=== PATIENT | female | born 1980 | race Caucasian/White ===

== ENCOUNTER 2018-07-15 05:25 | Emergency (ER) | payer BC ==
[~2018-07-15] VITALS: Ht 170.2 cm; Wt 76.0 kg
[~2018-07-15 05:25] MED LIST: ACET-1256 PO; IMD2X PO; PROBIOTIC PO; VANC5CAP PO
[2018-07-15 05:28] VITALS: Ht 170.2 cm; Wt 76.0 kg
--- NOTE | 2018-07-15 05:39 | EMERGENCY ROOM VISIT NOTE ---
History Report prepared by Chacorta: Tae Germain Under the Supervision of: Dr. Bhakti Krishna D.O. First contact with patient: 05:27 Chief Complaint: ANXIETY Stated Complaint: ANXIETY ATTACK History of Present Illness The patient is a 38 year old female who presents to the Emergency Room with complaints of an episode of anxiety occurring this morning. The patient states that she woke up at 0300 and felt like she was burning up. She notes that she felt fine before she went to bed. She reports that her pulse was 111. The patient states that she then took her temperature which was 101. She also complains of occasional leg stiffness beginning a week ago. She notes that she was recently increased from 50mg of Zoloft to 100mg a week ago. She reports that she could not take 100mg because of the side effects, and she states that she was then decreased to 75mg. She notes that she has been having leg stiffness since she was increased to 100mg. She reports that she is worried that she is getting serotonin syndrome. The patient states that she typically feels fine when she takes Ativan and Zoloft together; however, she notes that she has bad side effects once the Ativan wears off. She reports that she last took her Zoloft at 2030 and then went to bed. The patient states that she took an 0.5mg Ativan before EMS arrived and she notes that she was able to calm down on the way to the emergency department. She denies any sore throat, cough, and burning urination. She reports that she has a history of anxiety but does not have a history of reflux or any other problems. The patient states that she had her last period a week ago and she notes that there is no chance that she is . Per EMS, the patient was tachycardic in the 140s en route to the emergency department. Source of History: patient Onset: this morning Position: head Quality: other (anxiety) Timing: other (an episode) Associated Symptoms: + fevers, No sorethroat, No cough Note: The patient also complains of a pulse of 111 and occasional leg stiffness. She denies any burning urination. Review of Systems See HPI for pertinent positives & negatives. A total of 10 systems reviewed and were otherwise negative. Past Medical & Surgical Medical Problems: (1) Anxiety Family History No pertinent family history stated. Social History Alcohol Use: none Marital Status: Housing Status: lives with family Occupation Status: employed Current/Historical Medications Scheduled Sertraline Hcl (Zoloft), 50 MG PO DAILY Scheduled PRN Lorazepam (Ativan), 0.5 MG PO DAILY PRN for Anxiety Allergies Coded Allergies: Penicillins (Verified Allergy, Unknown, UNKNOWN, 07/15/18) Physical Exam Vital Signs Date Time Temp Pulse Resp B/P (MAP) Pulse Ox O2 Delivery O2 Flow Rate FiO2 07/15/18 06:18 37.0 96 18 115/75 100 Room Air 07/15/18 05:40 90 07/15/18 05:28 37.0 94 18 132/85 Room Air 97 Physical Exam General: Appears somewhat anxious on exam. HEENT: Head - normocephalic and atraumatic Pupils are equal, round, and reactive to light. Extraocular eye muscles are intact, and sclera are anicteric. Nose - moist nasal mucosa without discharge. Mouth - moist buccal mucosa. Oropharynx is nonerythematous and there is no tonsillar exudate or edema noted. Neck: Supple; no JVD, nuchal rigidity, cervical lymphadenopathy. Heart: Regular rate and rhythm. There is a normal S1 and S2 with no murmurs, clicks, or gallops appreciated. Lungs: Clear to auscultation bilaterally with no wheezes, rales, or rhonchi. Abdomen: Soft, completely nontender, nondistended, with good bowel sounds. There are no palpable pulsatile masses or hepatosplenomegaly. There is no guarding, rigidity, or rebound noted. Extremities: No evidence of cyanosis, clubbing, or edema. There are easily palpable peripheral pulses. Skin: warm and dry with good turgor and no rashes. Medical Decision & Procedures Laboratory Results 07/15/18 04:58 Red Blood Count 4.88, Mean Corpuscular Volume 83.8, Mean Corpuscular Hemoglobin 30.9, Mean Corpuscular Hemoglobin Concent 36.9, Mean Platelet Volume 9.6, Neutrophils (%) (Auto) 73.7, Lymphocytes (%) (Auto) 11.1, Monocytes (%) (Auto) 8.2, Eosinophils (%) (Auto) 6.0, Basophils (%) (Auto) 0.4, Neutrophils # (Auto) 3.66, Lymphocytes # (Auto) 0.55, Monocytes # (Auto) 0.41, Eosinophils # (Auto) 0.30, Basophils # (Auto) 0.02 07/15/18 04:58 Test 07/15/18 04:58 White Blood Count 4.97 K/uL (4.8-10.8) Red Blood Count 4.88 M/uL (4.2-5.4) Hemoglobin 15.1 g/dL (12.0-16.0) Hematocrit 40.9 % (37-47) Mean Corpuscular Volume 83.8 fL (80-100) Mean Corpuscular Hemoglobin 30.9 pg (25-34) Mean Corpuscular Hemoglobin Concent 36.9 g/dl (32-36) Platelet Count 206 K/uL (130-400) Mean Platelet Volume 9.6 fL (7.4-10.4) Neutrophils (%) (Auto) 73.7 % Lymphocytes (%) (Auto) 11.1 % Monocytes (%) (Auto) 8.2 % Eosinophils (%) (Auto) 6.0 % Basophils (%) (Auto) 0.4 % Neutrophils # (Auto) 3.66 K/uL (1.4-6.5) Lymphocytes # (Auto) 0.55 K/uL (1.2-3.4) Monocytes # (Auto) 0.41 K/uL (0.11-0.59) Eosinophils # (Auto) 0.30 K/uL (0-0.5) Basophils # (Auto) 0.02 K/uL (0-0.2) RDW Standard Deviation 38.4 fL (36.4-46.3) RDW Coefficient of Variation 12.6 % (11.5-14.5) Immature Granulocyte % (Auto) 0.6 % Immature Granulocyte # (Auto) 0.03 K/uL (0.00-0.02) Anion Gap 11.0 mmol/L (3-11) Est Creatinine Clear Calc Drug Dose 90.0 ml/min Estimated GFR () 93.4 Estimated GFR (Non- 80.6 BUN/Creatinine Ratio 7.4 (10-20) Calcium Level 9.2 mg/dl (8.5-10.1) Total Creatine Kinase 96 U/L (26-192) Laboratory results per my review. ECG Per My Interpretation Indication: tachycardia Rate (beats per minute): 88 Rhythm: normal sinus Findings: no ectopy, other (No ischemia, no ST segment changes) ED Course 0528: Past medical records reviewed. The patient was evaluated in room B2. A complete history and physical exam was performed. A 12-lead EKG was obtained as described above. Laboratory studies were drawn as above. 0614: I reevaluated and updated the patient. She is feeling better. She states that she has been seeing white and blue flashes of light in her eyes recently and was wondering if it was related to her situation. Her repeat temp was normal. 0627: Upon reevaluation, the patient is stable. I discussed findings and results with her. I suggested that she decrease her Zoloft dose back down to which she had taken for years-50 mg. She verbalized agreement of the treatment plan. The patient was discharged home. Medical Decision The patient is a 38 year old female who presents to the Emergency Room with complaints of an episode of anxiety occurring this morning. Differential diagnoses include: anxiety, medication side effects, serotonin syndrome, acute infectious process, and sepsis. Lab Results Show: Total CK 96. Normal renal function. Normal glucose. Stable H&H. No leukocytosis. Normal TSH This is a 38-year-old female patient presents to the emergency department after an episode of anxiety that awoke her from sleep. The patient is concerned that is related to her increase of her Zoloft dose. The patient states that she is following with Dr. Meredith for findings on her Holter monitor-a run of V. tach. For EMS, she had no ectopy or dysrhythmia. She had no ectopy or dysrhythmia while here in the emergency department on the cardiac technologist. The patient was feeling better prior to discharge. I encouraged the patient to decrease her dose of Zoloft back down to 50 mg which is the dose that she is taken for years. She is to discuss situation with her PCP. Medication Reconcilliation Current Medication List: was personally reviewed by me Blood Pressure Screening Patient's blood pressure: Normal blood pressure Blood pressure disposition: Did not require urgent referral Impression Primary Impression: Acute anxiety Additional Impression: Medication side effects Scribe Attestation The scribe's documentation has been prepared under my direction and personally reviewed by me in its entirety. I confirm that the note above accurately reflects all work, treatment, procedures, and medical decision making performed by me. Departure Information Dispostion Home / Self-Care Referrals No Doctor, Assigned (PCP) Forms HOME CARE DOCUMENTATION FORM, IMPORTANT VISIT INFORMATION Patient Instructions My [facility] Additional Instructions Rest. Decrease zoloft to 50mg a day and discuss with your PCP. You may need to switch meds. We will call you if your thyroid labs are abnormal Use ativan as needed for anxiety Problem Qualifiers
[2018-07-15 05:50] LABS: BASO % 0.4 %; BASO ABS # 0.02 K/uL (0-0.2); HEMATOCRIT 40.9 % (37-47); HEMOGLOBIN 15.1 g/dL (12.0-16.0); IG# 0.03 K/uL (0.00-0.02); LYMPH % 11.1 %; LYMPH ABS # 0.55 K/uL (1.2-3.4); MEAN CELL VOLUME 83.8 fL (80-100); MEAN CORPUSCULAR HEMOGLOBIN 30.9 pg (25-34); MEAN CORPUSCULAR HGB CONC 36.9 g/dl (32-36); MEAN PLATELET VOLUME 9.6 fL (7.4-10.4); MONO % 8.2 %; MONO ABS # 0.41 K/uL (0.11-0.59); NEUT % 73.7 %; NEUT ABS # 3.66 K/uL (1.4-6.5); PLATELET COUNT 206 K/uL (130-400); RED CELL DISTRIBUTION WIDTH CV 12.6 % (11.5-14.5); RED CELL DISTRIBUTION WIDTH SD 38.4 fL (36.4-46.3); WHITE BLOOD COUNT 4.97 K/uL (4.8-10.8)
[2018-07-15 06:12] LABS: CALCIUM 9.2 mg/dl (8.5-10.1); CREATININE 0.91 mg/dl (0.60-1.20); POTASSIUM 3.7 mmol/L (3.5-5.1)
[2018-07-15 06:18] VITALS: BP 115/75; PULSE 96; TEMP 37; O2SAT 100
[2018-07-15] MEDS ORDERED: LORA-741 PO (06:32)
[2018-07-15] MEDS ORDERED: SERT1TAB71 PO (06:32)
== END 2018-07-15 06:36 | disposition home or self-care (01) ==
LOC: C.EDB 05:25 → EDBD 05:25 → C.EDB 06:36
DX: F41.9 Anxiety disorder, unspecified (principal); T43.225A Adverse effect of selective serotonin reuptake inhibitors, initial encounter; Z79.899 Other long term (current) drug therapy; Z88.0 Allergy status to penicillin

== ENCOUNTER → 2018-07-17 | Outpatient (CLI) | payer BC ==
[~2018-07-17] MED LIST changes: -ACET-1256 PO; -IMD2X PO; +LORA-741 PO; -PROBIOTIC PO; +SERT1TAB71 PO; -VANC5CAP PO
[2018-07-17 16:46] LABS: BASO % 0.6 %; BASO ABS # 0.02 K/uL (0-0.2); EOS % 17.3 %; EOS ABS # 0.57 K/uL (0-0.5); HEMOGLOBIN 13.5 g/dL (12.0-16.0); LYMPH % 25.2 %; LYMPH ABS # 0.83 K/uL (1.2-3.4); MEAN CELL VOLUME 86.1 fL (80-100); MEAN CORPUSCULAR HEMOGLOBIN 29.8 pg (25-34); MEAN CORPUSCULAR HGB CONC 34.6 g/dl (32-36); MEAN PLATELET VOLUME 10.7 fL (7.4-10.4); MONO % 10.9 %; MONO ABS # 0.36 K/uL (0.11-0.59); NEUT ABS # 1.41 K/uL (1.4-6.5); PLATELET COUNT 170 K/uL (130-400); RED CELL DISTRIBUTION WIDTH CV 13.1 % (11.5-14.5); RED CELL DISTRIBUTION WIDTH SD 41.4 fL (36.4-46.3); WHITE BLOOD COUNT 3.29 K/uL (4.8-10.8)
[2018-07-17 16:59] LABS: ALBUMIN 3.4 gm/dl (3.4-5.0); ALKALINE PHOSPHATASE 61 U/L (45-117); ALT/SGPT 30 U/L (12-78); AST/SGOT 20 U/L (15-37); BLOOD UREA NITROGEN 12 mg/dl (7-18); CARBON DIOXIDE 24 mmol/L (21-32); CREATININE 0.82 mg/dl (0.60-1.20); GLUCOSE 95 mg/dl (70-99); POTASSIUM 3.6 mmol/L (3.5-5.1); SODIUM 137 mmol/L (136-145); TOTAL PROTEIN 6.6 gm/dl (6.4-8.2)
== END | disposition home or self-care (01) ==
LOC: C.LABPBG 13:26
PROVIDERS: ATTEND Family Medicine
DX: R50.9 Fever, unspecified (principal)

== ENCOUNTER 2019-02-03 11:34 | Inpatient (IN) ==
[2019-02-03 12:30] LABS: Appearance Urine Clear (Clear); Bilirubin Urine Negative (Negative); Blood Urine Negative (Negative); Color Urine Yellow; Glucose Urine UA Negative (Negative); Ketones Urine Trace (Negative); Leukocyte Esterase Urine Negative (Negative); Nitrite Urine Negative (Negative); Protein Urine Negative (Negative); Specific Gravity Urine 1.011 (1.000-1.030); Urobilinogen Urine Negative (Negative); pH Urine 6.5 (4.5-7.5)
[2019-02-03 13:00] LABS: Basophils # (auto) 0.05 K/uL (0-0.2); Basophils % (auto) 0.5 %; Eosinophils # (auto) 0.32 K/uL (0-0.5); Eosinophils % (auto) 3.4 %; Hematocrit (blood only) 44.4 % (37-47); Hemoglobin 15.8 g/dL (12.0-16.0); Immature Granulocytes # (auto) 0.02 K/uL (0.00-0.02); Immature Granulocytes % (auto) 0.2 %; Lymphocytes % (auto) 22.6 %; Mean Corpuscular Hgb Conc 35.6 g/dL (32-36); Mean Corpuscular Volume 86.2 fL (80-100); Mean Platelet Volume 9.4 fL (7.4-10.4); Monocytes # (auto) 0.41 K/uL (0.11-0.59); Monocytes % (auto) 4.4 %; Neutrophils # (auto) 6.38 K/uL (1.4-6.5); Neutrophils % (auto) 68.9 %; Platelet Count 271 K/uL (130-400); RDW Coefficient of Variation 12.6 % (11.5-14.5); RDW Standard Deviation 40.1 fL (36.4-46.3); Red Blood Count 5.15 M/uL (4.2-5.4); White Blood Count 9.28 K/uL (4.8-10.8)
[2019-02-03 13:00] LABS: Amphetamines+Metham, Urine Neg (Neg); Barbiturates, Urine Neg (Neg); Benzodiazepine, Urine Neg (Neg); Cocaine, Urine Neg (Neg); MDMA (Ecstacy), Urine Neg (Neg); Methadone, Urine Neg (Neg); Opiate, Urine Neg (Neg); Phencyclidine, Urine Neg (Neg)
[2019-02-03 13:20] LABS: Albumin Level 4.3 gm/dl (3.4-5.0); BUN Creatinine Ratio 18.4 (10-20); Calcium 8.6 mg/dl (8.5-10.1); Creatinine Clr Calc Pharmacy 111.8 ml/min; Est GFR (African American) 130.8; Est GFR (Non-African American) 112.9; Potassium 3.5 mmol/L (3.5-5.1)
[2019-02-03 13:31] LABS: Albumin Globulin Ratio 1.3 (0.9-2); Bilirubin,Total 0.5 mg/dl (0.2-1); Globulin 3.3 gm/dl (2.5-4.0); Total Protein 7.6 gm/dl (6.4-8.2)
--- NOTE | 2019-02-03 14:28 | Emergency Department Note ---
Entered by Cheyenne Chand acting as a scribe for Crow Aviles DO History of Present Illness General Chief complaint: Mental Health Evaluation Stated complaint: MENTAL EVAL Source: patient History of Present Illness Onset (ago): year(s) 1 Location: head Pain Consistency: + other (worsening) Quality: + other (mental health evaluation) Associated symptoms: + loss of appetite and + other (lack of motivation, shakiness, difficulty remembering things, difficulty sleeping, feeling agitated) The patient is a 38 year old female who presents to the Emergency Room for a mental health evaluation. The patient states that she was sent her to be evaluated by her PA for mood instability. She states that she has a history of depression and anxiety. She states that she has been on many different medications and at one point had a few years that were good where she was off of them, but then she had her twins in 2010. She states that since then her symptoms have come back. She reports that a year ago, the symptoms became worse. The patient complains of lack of motivation, difficulty remembering things since upset, shakiness, difficulty sleeping, loss of appetite, and feeling agitated. She notes that she has been struggling with getting through her daily act ivities. The patient denies suicidal thoughts and homicidal thoughts. Home Medications Home Medications Medication Instructions Recorded Confirmed Type Lactobacillus rhamnosus GG 1 cap PO HS 11/17/18 02/03/19 History [Culturelle] Saccharomyces boulardii [Florastor] 250 mg PO DAILY 11/17/18 02/03/19 History clonidine HCl 0.5 mg PO BID 11/17/18 02/03/19 History omeprazole magnesium [Prilosec OTC] 20 mg PO DAILY 11/17/18 02/03/19 History chlorpromazine 10 mg PO BID PRN 02/03/19 02/03/19 History gabapentin 300 mg PO TID 02/03/19 02/03/19 History Allergies Allergy/AdvReac Type Severity Reaction Status Date / Time Penicillins Allergy Unknown UNKNOWN Verified 11/17/18 14:16 Past Med/Surg History Medical History Anxiety Depression Hypertension Family History Other No significant family history Social History marital status: Current Living Situation: Family current occupational status: employed Feels Safe at Home: Yes Smoking Status: Current every day smoker Review of Systems See HPI for pertinent positives & negatives. and A total of 10 systems reviewed and were otherwise negative Physical Exam Vital Signs Vital Signs - 24 hr 02/03/19 11:43 02/03/19 16:58 Temperature 37.2 C Temperature Source Oral Sepsis Recent Fever Within 48 Hours No Sepsis Action Taken by Nursing No Action Required Pulse Rate 96 H 79 Pulse Rhythm Regular Pulse Strength Normal Respiratory Rate 18 18 Respiratory Effort / Characteristics Non-Labored Respiratory Depth Normal Respiratory Pattern Regular Blood Pressure 138/98 128/86 Blood Pressure Mean 111 Blood Pressure Position Sitting Pulse Oximetry 98 98 Oxygen Delivery Method Room Air Room Air GENERAL: Sitting up in bed, extremely emotional, crying EYE EXAM: Injected conjunctiva. OROPHARYNX: no exudate, no erythema, lips, buccal mucosa, and tongue normal and mucous membranes are moist NECK: supple, no nuchal rigidity, no adenopathy, non-tender LUNGS: Clear to auscultation. Normal chest wall mechanics HEART: no murmurs, S1 normal and S2 normal ABDOMEN: abdomen soft, non-tender, normo-active bowel, sounds, no masses, no rebound or guarding. BACK: Back is symmetrical on inspection and there is no deformity, no midline tenderness, no CVA tenderness. SKIN: no rashes and no bruising UPPER EXTREMITIES: upper extremities are grossly normal. LOWER EXTREMITIES: No pitting edema. NEURO EXAM: Normal sensorium, cranial nerves II-XII grossly intact, normal speech, no gross weakness of arms, no gross weakness of legs. PSYCH: Denies SI and HI. Admits to not caring for self, eating, drinking, or sleeping much. Course ED COURSE: Vital signs were reviewed and showed that they are normal. The patients medical record was reviewed The above diagnostic studies were performed and reviewed. ED treatments and interventions as stated above. 1253: The patient was evaluated in room A5. A complete history and physical examination was performed. 1633: The patient was accepted to [address] [place] [address]. Based on the patients age, coexisting illnesses, exam and lab findings the decision to treat as an inpatient was made. The patient remained stable while under my care. The patient will be evaluated for further management. Medical Decision Making Differential Diagnosis Etiologies such as mood disorder, toxicologic, infection, hypoglycemia, electrolyte abnormalities, cardiac sources, intracerebral event, neurologic, as well as others were entertained. Medical Records Attestation: I reviewed the patient's medical records. Home Medications Current Medication List: was personally reviewed by me Laboratory Data Attestation: I reviewed the patient's lab results. Result diagrams: 02/03/19 12:35 02/03/19 12:35 Lab Results 02/03/19 02/03/19 02/03/19 Range/Units 12:10 12:10 12:35 WBC 9.28 (4.8-10.8) K/uL RBC 5.15 (4.2-5.4) M/uL Hgb 15.8 (12.0-16.0) g/dL Hct 44.4 (37-47) % MCV 86.2 (80-100) fL MCH 30.7 (25-34) pg MCHC 35.6 (32-36) g/dL RDW Std Deviation 40.1 (36.4-46.3) fL RDW Coeff of Andres 12.6 (11.5-14.5) % Plt Count 271 (130-400) K/uL MPV 9.4 (7.4-10.4) fL Immature Gran % (Auto) 0.2 % Neut % (Auto) 68.9 % Lymph % (Auto) 22.6 % [place] % (Auto) 4.4 % Eos % (Auto) 3.4 % Baso % (Auto) 0.5 % Immature Gran # (Auto) 0.02 (0.00-0.02) K/uL Neut # (Auto) 6.38 (1.4-6.5) K/uL Lymph # (Auto) 2.10 (1.2-3.4) K/uL [place] # (Auto) 0.41 (0.11-0.59) K/uL Eos # (Auto) 0.32 (0-0.5) K/uL Baso # (Auto) 0.05 (0-0.2) K/uL Sodium (136-145) mmol/L Potassium (3.5-5.1) mmol/L Chloride (98-107) mmol/L Carbon Dioxide (21-32) mmol/L Anion Gap (3-11) BUN (7-18) mg/dl Creatinine (0.6-1.2) mg/dl Est Cr Clr Drug Dosing ml/min Est GFR ( Amer) Est GFR (Non-Af Amer) BUN/Creatinine Ratio (10-20) Glucose (70-99) mg/dl Calcium (8.5-10.1) mg/dl Total Bilirubin (0.2-1) mg/dl AST (15-37) U/L ALT (12-78) U/L Alkaline Phosphatase (45-117) U/L Total Protein (6.4-8.2) gm/dl Albumin (3.4-5.0) gm/dl Globulin (2.5-4.0) gm/dl Albumin/Globulin Ratio (0.9-2) TSH (0.300-4.500) uIu/ml HCG, Qual (Negative) Urine Color Yellow Urine Appearance Clear (Clear) Urine pH 6.5 (4.5-7.5) Ur Specific [place] 1.011 (1.000-1.030) Urine Protein Negative (Negative) Urine Glucose (UA) Negative (Negative) Urine Ketones Trace H (Negative) Urine Blood Negative (Negative) Urine Nitrite Negative (Negative) Urine Bilirubin Negative (Negative) Urine Urobilinogen Negative (Negative) Ur Leukocyte Esterase Negative (Negative) Urine Opiates Screen Neg (Neg) Ur Methadone, Qual Neg (Neg) Urine Barbiturates Neg (Neg) Ur Phencyclidine (PCP) Neg (Neg) U Amphetamin/Meth Scrn Neg (Neg) MDMA (Ecstasy) Screen Neg (Neg) U Benzodiazepines Scrn Neg (Neg) Ur Cocaine Metabolite Neg (Neg) U Marijuana (THC) Screen Neg (Neg) Ethyl Alcohol mg/dL (0-3) mg/dl 02/03/19 02/03/19 02/03/19 Range/Units 12:35 12:35 12:35 WBC (4.8-10.8) K/uL RBC (4.2-5.4) M/uL Hgb (12.0-16.0) g/dL Hct (37-47) % MCV (80-100) fL MCH (25-34) pg MCHC (32-36) g/dL RDW Std Deviation (36.4-46.3) fL RDW Coeff of Andres (11.5-14.5) % Plt Count (130-400) K/uL MPV (7.4-10.4) fL Immature Gran % (Auto) % Neut % (Auto) % Lymph % (Auto) % [place] % (Auto) % Eos % (Auto) % Baso % (Auto) % Immature Gran # (Auto) (0.00-0.02) K/uL Neut # (Auto) (1.4-6.5) K/uL Lymph # (Auto) (1.2-3.4) K/uL [place] # (Auto) (0.11-0.59) K/uL Eos # (Auto) (0-0.5) K/uL Baso # (Auto) (0-0.2) K/uL Sodium 137 (136-145) mmol/L Potassium 3.5 (3.5-5.1) mmol/L Chloride 106 (98-107) mmol/L Carbon Dioxide 25 (21-32) mmol/L Anion Gap 6.0 (3-11) BUN 12 (7-18) mg/dl Creatinine 0.66 (0.6-1.2) mg/dl Est Cr Clr Drug Dosing 111.8 ml/min Est GFR ( Amer) 130.8 Est GFR (Non-Af Amer) 112.9 BUN/Creatinine Ratio 18.4 (10-20) Glucose 127 H (70-99) mg/dl Calcium 8.6 (8.5-10.1) mg/dl Total Bilirubin 0.5 (0.2-1) mg/dl AST 10 L (15-37) U/L ALT 20 (12-78) U/L Alkaline Phosphatase 63 (45-117) U/L Total Protein 7.6 (6.4-8.2) gm/dl Albumin 4.3 (3.4-5.0) gm/dl Globulin 3.3 (2.5-4.0) gm/dl Albumin/Globulin Ratio 1.3 (0.9-2) TSH 1.300 (0.300-4.500) uIu/ml HCG, Qual Negative (Negative) Urine Color Urine Appearance (Clear) Urine pH (4.5-7.5) Ur Specific [place] (1.000-1.030) Urine Protein (Negative) Urine Glucose (UA) (Negative) Urine Ketones (Negative) Urine Blood (Negative) Urine Nitrite (Negative) Urine Bilirubin (Negative) Urine Urobilinogen (Negative) Ur Leukocyte Esterase (Negative) Urine Opiates Screen (Neg) Ur Methadone, Qual (Neg) Urine Barbiturates (Neg) Ur Phencyclidine (PCP) (Neg) U Amphetamin/Meth Scrn (Neg) MDMA (Ecstasy) Screen (Neg) U Benzodiazepines Scrn (Neg) Ur Cocaine Metabolite (Neg) U Marijuana (THC) Screen (Neg) Ethyl Alcohol mg/dL < 3.0 (0-3) mg/dl Blood Pressure Blood Pressure Findings: Normal blood pressure Blood Pressure Disposition: did not require urgent referral MDM Narrative Patient is a 38-year-old female who presents the ER is extremely depressed and has been extremely anxious. She has not been really taking care of herself. Labs were obtained and showed no significant leukocytosis or anemia. BMP along with LFTs bilirubin and TSH was unremarkable. HCG was negative. UA was negative. Tox was negative. Alcohol was negative. Patient had no other medical complaints. Patient was evaluated by Kalyani. She was referred to [facility] and accepted for further workup. Impression & Plan Mood disorder Discharge Plan Visit Data Chief Complaint: Mental Health Evaluation Stated Complaint: MENTAL EVAL ED Provider: Crow Aviles Discharge Problem: Mood disorder Patient Disposition: Transfer [facility] Fac Discharge Instructions Interventions: ED Discharge Assessment Last Done: 02/03/19 16:58 Forms Stand Alone Forms: My [facility] Prescriptions Prescriptions: No Action gabapentin 300 mg Capsule 300 mg PO TID RF: 0 chlorpromazine 10 mg tablet 10 mg PO BID PRN (Reason: Agitation) RF: 0 clonidine HCl 0.1 mg Tablet 0.5 mg PO BID RF: 0 Culturelle 10 billion cell Capsule 1 cap PO HS RF: 0 Prilosec OTC 20 mg Tablet,Delayed Release (Dr/Ec) 20 mg PO DAILY RF: 0 Florastor 250 mg Capsule 250 mg PO DAILY RF: 0 Referrals Referrals: Sarah Arguello DO [Primary Care Provider] - The ericaibe's documentation has been prepared under my direction and personally reviewed by me in its entirety. I confirm that the note above accurately reflects all work, treatment, procedures, and medical decision making performed by me.
[2019-02-03] MEDS ORDERED: ALUMINUM/MAGNESIUM SUSP 30 ML UDC PO PRN (15:31)
[2019-02-03] MEDS ORDERED: BISMUTH SUBSALICYLATE PER ML OMNICELL CHARGE PO PRN (15:31)
[2019-02-03] MEDS ORDERED: SODIUM CHLORIDE 0.65% NA SOLN 45 ML (OCEAN) PRN (15:31)
[2019-02-03] MEDS ORDERED: ACETAMINOPHEN 325 MG TAB PO PRN (15:31)
[2019-02-03] MEDS ORDERED: MAGNESIUM HYDROXIDE SUSP 30 ML UDC PO PRN (15:31)
[2019-02-03] MEDS ORDERED: CHLORPROMAZINE HCL 10 MG TABLET PO PRN (15:33)
[2019-02-03 15:53] LABS: Pregnancy Test, Serum Negative (Negative)
[2019-02-03] MEDS ORDERED: cloNIDine HCl 0.1 MG TAB PO STA ×2 (17:26→19:22)
--- NOTE | 2019-02-03 19:15 | Emergency Department Note ---
ED Visit Note I received this patient at change of shift signout. The patient was medically cleared in the emergency department. The patient required a 302 petition which was filled out by Dr. Aviles prior to my arrival. A bed search was underway but ultimately the patient was felt to be a good candidate for admission to our facility. She was admitted to [facility] The patient was transported to [facility] without any issues. .
[2019-02-03] MEDS ORDERED: cloNIDine HCl 0.1 MG TAB PO ONE (19:28)
[2019-02-03] MEDS ORDERED: NON-FORMULARY MEDICATION (Lactobacillus Rhamnosus Gg [Culturelle] 1 CAP) PO SCH (21:00)
[2019-02-03] MEDS ORDERED: cloNIDine HCl 0.1 MG TAB PO SCH (21:00)
[2019-02-03] MEDS: GABAPENTIN 300 MG CAP PO SCH (21:18)
[2019-02-03] MEDS: LACTASE 3000 UNIT TAB PO SCH (21:20)
[2019-02-03] MEDS: NICOTINE POLACRILEX 2 MG GUM MT PRN (22:04)
[2019-02-04] MEDS: PANTOprazole 40 MG TAB PO SCH (05:41)
[2019-02-04] MEDS: GABAPENTIN 300 MG CAP PO SCH ×3 (05:41→21:03)
[2019-02-04] MEDS: LACTASE 3000 UNIT TAB PO SCH ×3 (08:46→17:35)
[2019-02-04] MEDS: SACCHAROMYCES BOULARDII 250 MG CAP PO SCH (08:46)
[2019-02-04] MEDS ORDERED: cloNIDine HCl 0.1 MG TAB PO SCH ×2 (09:00)
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
[2019-02-04] MEDS: NICOTINE POLACRILEX 2 MG GUM MT PRN ×3 (10:54→19:28)
[2019-02-04] MEDS ORDERED: IBUPROFEN 600 MG TAB PO PRN (13:30)
[2019-02-04] MEDS ORDERED: ESCITALOPRAM OXALATE 10 MG TAB PO ONE (14:30)
[2019-02-04] MEDS: ESCITALOPRAM OXALATE 10 MG TAB PO SCH (17:30)
[2019-02-04] MEDS: cloNIDine HCl 0.1 MG TAB PO SCH (17:57)
[2019-02-05] MEDS: cloNIDine HCl 0.1 MG TAB PO SCH ×2 (06:26→17:23)
[2019-02-05] MEDS: GABAPENTIN 300 MG CAP PO SCH ×3 (06:27→21:02)
[2019-02-05] MEDS: SACCHAROMYCES BOULARDII 250 MG CAP PO SCH (06:28)
[2019-02-05] MEDS: PANTOprazole 40 MG TAB PO SCH (06:28)
[2019-02-05] MEDS: LACTASE 3000 UNIT TAB PO SCH ×3 (08:59→17:25)
[2019-02-05] MEDS: ESCITALOPRAM OXALATE 10 MG TAB PO SCH (09:00)
[2019-02-05] MEDS ORDERED: ESCITALOPRAM OXALATE 10 MG TAB PO SCH (09:00)
--- NOTE | 2019-02-05 10:04 | Psychiatric Progress Note ---
Date of Service February 05, 2019 Impression / Recommendations Impression With additional information received from patient and during family meeting, it is likely patient's symptoms are driven by anxiety. did not provide evidence to further support a history of bipolar presentation, and it is possible reported concerns may be more consistent with an obsessive compulsive disorder. Will continue to gather history from patient and family to determine clearer diagnosis. Pt tolerated initiation of 2.5mg of escitalopram yesterday afternoon, and a serotonergic agent, if tolerated, may be the best option for treating her reported depressive and anxiety symptoms. Will continue to titrate medication as tolerated. Pt is agreeable to an additional 2.5mg of escitalopram at lunch today, with plan to schedule 5mg qAM starting tomorrow morning. Explained reasoning to try to maximize results from medication to improve anxiety symptoms. Pt is agreeable with this plan. We also discussed how increased anxiety can make us hypervigilant to physical symptoms, and to continue to inform staff of concerns, but continue medication if tolerated. Pt was understanding of topics discussed and is agreeable to this plan. She requires ongoing inpatient mental health treatment due to significant list of failed medication trials, initiation of new medication, and reports of inability to care for self properly outside of the hosptial setting. (1) Depression: 02/04 - Admitted to a locked inpatient behavioral health unit, on q15 minute safety checks - Agreeable to initiation of escitalopram at 2.5mg, with plan to increase to 5mg dose tomorrow morning - Request and review records from outpatient providers - Encourage participation in group and recreational therapies - Gather collateral information from outpatient providers - Suggest family meeting to involve outpatient supports in safety planning - Arrange appropriate aftercare 02/05 - Will provide additional 2.5mg of escitalopram at lunch today, then increase to 5mg qAM starting tomorrow - Family meeting with this morning, provided helpful collateral information - Continue to encourage participation in group and recreational therapies (2) Anxiety: 02/04 - initiate escitalopram 2.5mg with titration as tolerated - hydroxyzine available as needed for acute anxiety 02/05 - medication adjustments as above - continue to gather history, as diagnosis may be more consistent with a possible obsessive compulsive disorder given new information provided - offer support with regard to physical concerns and assist with healthy coping strategies to manage anxiety Inventory Assets Strengths: support of family, established outpatient providers Needs: tolerable medication regimen, development of healthy and effective coping strategies Risk Factors Assessment Male: No : Yes Do You Have Access To A Gun?: Yes (locked up at home) Health Problems: No Mental Health Diagnoses: Yes Substance Use Disorders: No Previous Attempt: No Family History of Suicide: No Previous Psychiatric Hospitalization: No (inpatient detox to taper clonazepam) Hopelessness: Yes Smoker: Yes Protective Factors Assessment Jewish Beliefs: Yes : Yes Responsible for Young Children: Yes 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 Pt was admitted on 02/03/19 15:31 on a 201 voluntary commitment for worsening anxiety and difficulty caring for self. Information is gathered from patient and is considered to be reliable. Chief Complaint "Eh...it's been a difficult morning so far". Review of Systems Notes Constitutional: denied Cardiovascular: denied Respiratory: denied Gastrointestinal: "upset stomach" last evening Neurological: denied Psychiatric: denies symptoms other than stated above Total of at least 10 systems reviewed, pertinent positives as above and in HPI. Sleep Information Total Hours of Sleep: 5.75 Sleep Comments: awakened from sleep for a room/personal belonging check after midnight. she was able to fall back to sleep. Meal Information Percent Meal Consumed - Breakfast: 100 Percent Meal Consumed - Lunch: 70 Percent Meal Consumed - Dinner: 100 Subjective Subjective Patient was seen & assessed and interval progress reviewed with Treatment Team. Staff report the patient has been attending groups regularly. Family meeting with her scheduled for this morning. Pt was seen to assess progress since admission. Our visit occurred shortly after the meeting with her . Pt admits that the meeting was "a necessary evil I guess, it's just difficult to go through all that stuff again." Pt was referring to history that was shared by regarding the timeline of her mental health concerns. Pt shares with this providers some additional information - "that I'm glad my brought up, because I don't think I would have thought of it otherwise." Pt states she continues to be focused on her physical concerns, hypervigilant for medication side effects or evidence of an underlying medical problem. She admits a lot of her anxiety stems from analyzing diagnoses which could explain various physical concerns. Pt states this behavior has been withing the last 9 months, but also shares that she had frequent worries "I would have a heart attack, or in my sleep." While she was in college. Pt states she often gets to the point of thinking "I know these thoughts are upsetting me, why can't I stop?" Pt shared both with this provider, and during the family meeting, that she has various "obsessions" - most presently being a need to "check stuff". She now admits to having to revisit rooms several times prior to settling into bed or leaving the house for the day. She states, "I know it, I say to myself 'you just went in there, why are you checking again?' but I can't help it." She states the earliest memory of these compulsions was when her twins were babies, she had been diagnosed with C. diff. Pt states, "I keep jugs of bleach in the bathroom, I would soak everything down, then wash my hands, then have to do it again. My girls weren't even using the bathroom yet, so I don't know why I was doing it." She states this behavior resolved after her symptoms improved. Pt states she tolerated the initiation of 2.5mg of escitalopram yesterday afternoon. She is willing to continue to increase this medication as tolerated to target anxiety. Pt's only physical complaint at this time is "upset stomach last night, I felt like I was gonna have diarrhea, but I was ok." She denies feelings of restlessness, skin crawling, or other symptoms reported with previous medication trials. Pt denies SI, but continues to feel she would not be capable of returning home and caring for herself in her current condition. Summary of Past History Records from [facility] were received and reviewed. Reports provided are from 01/22/19, 01/29/19, and 02/03/19 when inpatient treatment was recommended. Pt was continued on aripiprazole 5mg the end of 12/2018 which was taken with gabapentin. At 01/29 visit she was no longer taking the aripiprazole, but had reported feeling as though the gabapentin was beneficial therefore it was increased to 300mg TID. 02/03 visit started with the patient admitting she was "terrifed", being afraid of "mood swings", reporting prolonged emotional spells and feeling nauseous and scared. She admitted to feeling "constantly scared of something". It was reported the patient had been contacting her prescriber via portal messages "up to 20 even 40 times a day." Inpatient psychiatric admission was recommended. Physical Exam Psychiatric Orientation: alert, oriented x 3 and cooperative Apperance: appropriately dressed and appropriately groomed Eye Contact: good eye contact Motor Behavior: steady gait and station and no abnormal motor movements Speech: normal rate/rhythm/volume of speech Affect: + depressed affect and + tearful affect Mood: + depressed mood and + anxious mood "just worried" and "it's been a difficult morning, it's overwhelming" Thought Process: goal directed thought process and clear/coherent thought process Thought Content: + preoccupation (with physical symptoms) and reality based without delusions Suicidal Thoughts: denies suicidal thoughts Homicidal Thoughts: denies homicidal thoughts Hallucinations: no auditory hallucinations and no visual hallucinations Cognition: recent memory grossly intact, remote memory grossly intact, attention grossly intact and language grossly intact Estimated Intelligence: consistent with education level Insight: + fair insight Judgement: + fair judgement Vital Signs (Past 24 Hours) Last Vital Signs Temp 37.1 C 02/05/19 06:25 Pulse 93 H 02/05/19 06:25 Resp 18 02/05/19 06:25 BP 125/80 02/05/19 06:25 Pulse Ox 98 02/03/19 16:58 Results & Data Current Inpatient Medications Current Inpatient Medications: Current Inpatient Medications Acetaminophen (Tylenol) 650 mg PO Q4H PRN PRN Reason: Headache or Minor Fever Stop: 03/05/19 15:30 Last Admin: 02/04/19 13:27 Dose: 650 mg Documented by: Al Hydrox/Mg Hydrox/Simethicone (Maalox) 30 ml PO Q4H PRN PRN Reason: GI Upset Stop: 03/05/19 15:30 Bismuth Subsalicylate (Kaopectate) 15 ml PO PRN PRN PRN Reason: Loose Stool Stop: 03/05/19 15:30 Chlorpromazine HCl (Thorazine) 10 mg PO BID PRN PRN Reason: Agitation Stop: 03/05/19 15:32 Clonidine HCl (Catapres) 0.05 mg PO BID17 [facility] Stop: 03/06/19 17:24 Last Admin: 02/05/19 06:26 Dose: 0.05 mg Documented by: Escitalopram Oxalate (Lexapro) 2.5 mg PO QAM [facility] Stop: 03/06/19 16:59 Last Admin: 02/05/19 09:00 Dose: 2.5 mg Documented by: Gabapentin (Neurontin) 300 mg PO TID [facility] Stop: 03/05/19 20:59 Last Admin: 02/05/19 06:27 Dose: 300 mg Documented by: Hydroxyzine HCl (Vistaril) 25 mg PO Q4H PRN PRN Reason: Anxiety Stop: 03/05/19 15:30 Hydroxyzine HCl (Vistaril) 50 mg PO HSZ PRN PRN Reason: Insomnia Stop: 03/05/19 15:30 Ibuprofen (Motrin) 600 mg PO Q6H PRN PRN Reason: Pain Stop: 03/06/19 13:29 Lactase (Lactaid) 3,000 units PO TID [facility] Stop: 03/05/19 20:59 Last Admin: 02/05/19 08:59 Dose: 3,000 units Documented by: Magnesium Hydroxide (Milk Of Magnesia) 30 ml PO DAILY PRN PRN Reason: Heartburn Stop: 03/05/19 15:30 Nicotine Polacrilex (Nicorette 2mg) 1 piece MT Q2H PRN PRN Reason: cravings Stop: 03/05/19 19:47 Last Admin: 02/04/19 19:28 Dose: 1 piece Documented by: Pantoprazole Sodium (Protonix) 40 mg PO DAILY [facility] Stop: 03/06/19 08:59 Last Admin: 02/05/19 06:28 Dose: 40 mg Documented by: Saccharomyces Boulardii (Florastor) 250 mg PO DAILY [facility] Stop: 03/06/19 08:59 Last Admin: 02/05/19 06:28 Dose: 250 mg Documented by: Sodium Chloride ([place] Nasal) 1 - 2 sprays NA PRN PRN PRN Reason: Nasal Dryness/Congestion Stop: 03/05/19 15:30 Post Discharge Appointments Primary Care Physician Name Of Family Doctor: Dr Arguello Therapist Name of Therapist: Ree @ [facility] Steam Setter Name of Steam Setter: None CPT Code CPT Code 72347
[2019-02-05] MEDS ORDERED: ESCITALOPRAM OXALATE ORAL SOLN 5 MG/5 ML PO ONE (12:30)
[2019-02-05] MEDS: NICOTINE POLACRILEX 2 MG GUM MT PRN ×3 (13:20→21:02)
[2019-02-06] MEDS: cloNIDine HCl 0.1 MG TAB PO SCH ×2 (06:31→17:38)
[2019-02-06] MEDS: GABAPENTIN 300 MG CAP PO SCH ×3 (06:32→21:03)
[2019-02-06] MEDS: SACCHAROMYCES BOULARDII 250 MG CAP PO SCH (06:32)
[2019-02-06] MEDS: PANTOprazole 40 MG TAB PO SCH (06:32)
--- NOTE | 2019-02-06 08:13 | Psychiatric Progress Note ---
Date of Service February 06, 2019 Impression / Recommendations Impression With additional information received from patient and during family meeting with , it is likely patient's symptoms are driven by obsessive type of anxiety, meaning there was no evidence to further support a history of bipolar presentation. Patient is tolerating day two of lexapro 5mg and will continued, will review her Genomind testing completed as outpatient with copy brought with her to this hospitalization to discuss it with her further. She reports modest benefit from neurontin but cognitive cloudiness, and most recent increase from 200mg tid to 300mg tid feeling more depressed. We will monitor she is hesitant for this provider to change and we agree to monitor closely. She is at risk for regression and given reports of inability to care for self properly outside of the hospital setting premature discharge is likely to cause resurgence of inability to care for self. (1) Depression: 02/04 - Admitted to a locked inpatient behavioral health unit, on q15 minute safety checks - Agreeable to initiation of escitalopram at 2.5mg, with plan to increase to 5mg dose tomorrow morning - Request and review records from outpatient providers - Encourage participation in group and recreational therapies - Gather collateral information from outpatient providers - Suggest family meeting to involve outpatient supports in safety planning - Arrange appropriate aftercare 02/05 - Will provide additional 2.5mg of escitalopram at lunch today, then increase to 5mg qAM starting tomorrow - Family meeting with this morning, provided helpful collateral information - Continue to encourage participation in group and recreational therapies 02/06 - continue as above, lexapro 5mg, and monitor neurontin closely as could impact mood and cognition (2) Anxiety: 02/04 - initiate escitalopram 2.5mg with titration as tolerated - hydroxyzine available as needed for acute anxiety 02/05 - medication adjustments as above - continue to gather history, as diagnosis may be more consistent with a possible obsessive compulsive disorder given new information provided - offer support with regard to physical concerns and assist with healthy coping strategies to manage anxiety 02/06 - as above, monitor neurontin as may help but also bring side effects Inventory Assets Strengths: support of family, established outpatient providers Needs: tolerable medication regimen, development of healthy and effective coping strategies Risk Factors Assessment Male: No : Yes Do You Have Access To A Gun?: Yes (locked up at home) Health Problems: No Mental Health Diagnoses: Yes Substance Use Disorders: No Previous Attempt: No Family History of Suicide: No Previous Psychiatric Hospitalization: No (inpatient detox to taper clonazepam) Hopelessness: Yes Smoker: Yes Protective Factors Assessment Restorationism Beliefs: Yes : Yes Responsible for Young Children: Yes 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 Pt was admitted on 02/03/19 15:31 on a 201 voluntary commitment for worsening anxiety and difficulty caring for self. Information is gathered from patient and is considered to be reliable. Chief Complaint "I feel a little less anxious right now, this morning" Review of Systems Sleep Information Total Hours of Sleep: 6.75 Sleep Comments: awakened for am vital signs, pleased she had slept till awakened, became anxious and came to the nurses station to request and receive am scheduled meds for anxiety management and her GI meds. Meal Information Percent Meal Consumed - Breakfast: 90 Percent Meal Consumed - Lunch: 90 Percent Meal Consumed - Dinner: 100 Subjective Subjective Patient was seen & assessed and interval progress reviewed with Treatment Team. She is tolerating the 5mg lexapro to date, attending to ADLs, is already on the phone this AM with spouse who is supportive. There is ongoing effort to establish aftercare with no response yet from outpati ent services that were contacted Friday. Met with patient who shares that she had a prior feeling on zoloft "like a warm soft blanket was on my skin or anything that touched me" that emerged at doses beyond 50mg, and she has "hint of that feeling" today , day 2 on the 5mg lexapro. She denies other overt side effects of lexapro, no robust benefit but she has realistic expectation that it can take rubin. Her anxiety is worst in the AM so she asks to take her AM meds at 530am. She feels neurontin may help some (started and increased prior to admission) but may cause her to have cloudy thinking and less attention, but she also felt this somewhat prior to neurontin as well in a milder form. She does not have a sense of any worsening of cognition with additon of lexapro. She asks many questions about diagnosis, her genomind testing, receptors and enzymes. We agree to leave her medications as is and monitor consider we may want to consider reduction of neurontin or all hs dosing in the future if side effects of high AM anxiety continue. She slept reasonbly last night with monitoring and evaluation advisor waking she states she awake in the middle of the night and unable to return to sleep, but per staff she seemed to require being woken for vitals, and feels tired. She admits to snoring in the past "it has been mentioned" she does at times wake SOB but not routinely, she denies EDS or inopportune napping She does at times have AM RILEY's. mood is fair, anxiety remains high, denies panic, denies over Si, but also feels overwhelmed and paralyzed and fears return home prior to seeing some progress i npatient for fear she will "be no better". Physical Exam Psychiatric Orientation: alert, oriented x 3 and cooperative Apperance: appropriately dressed, appropriately groomed and appeared stated age Eye Contact: good eye contact Motor Behavior: steady gait and station and no abnormal motor movements Speech: normal rate/rhythm/volume of speech Affect: + depressed affect and + anxious affect Mood: + anxious mood Thought Process: goal directed thought process, linear/logical thought process and clear/coherent thought process Thought Content: + preoccupation (with medications and receptors and "right medications") and reality based without delusions Suicidal Thoughts: denies suicidal thoughts Homicidal Thoughts: denies homicidal thoughts Hallucinations: no auditory hallucinations and no visual hallucinations Cognition: recent memory grossly intact, remote memory grossly intact, attention grossly intact and language grossly intact Estimated Intelligence: consistent with education level Insight: + fair insight Judgement: + fair judgement Vital Signs (Past 24 Hours) Last Vital Signs Temp 37 C 02/06/19 06:33 Pulse 77 02/06/19 06:34 Resp 16 02/06/19 06:33 BP 113/80 02/06/19 06:34 Pulse Ox 98 02/03/19 16:58 Results & Data Current Inpatient Medications Current Inpatient Medications: Current Inpatient Medications Acetaminophen (Tylenol) 650 mg PO Q4H PRN PRN Reason: Headache or Minor Fever Stop: 03/05/19 15:30 Last Admin: 02/04/19 13:27 Dose: 650 mg Documented by: Al Hydrox/Mg Hydrox/Simethicone (Maalox) 30 ml PO Q4H PRN PRN Reason: GI Upset Stop: 03/05/19 15:30 Bismuth Subsalicylate (Kaopectate) 15 ml PO PRN PRN PRN Reason: Loose Stool Stop: 03/05/19 15:30 Chlorpromazine HCl (Thorazine) 10 mg PO BID PRN PRN Reason: Agitation Stop: 03/05/19 15:32 Clonidine HCl (Catapres) 0.05 mg PO BID17 [facility] Stop: 03/06/19 17:24 Last Admin: 02/06/19 06:31 Dose: 0.05 mg Documented by: Escitalopram Oxalate (Lexapro) 5 mg PO QAM [facility] Stop: 03/08/19 08:59 Gabapentin (Neurontin) 300 mg PO TID [facility] Stop: 03/05/19 20:59 Last Admin: 02/06/19 06:32 Dose: 300 mg Documented by: Hydroxyzine HCl (Vistaril) 25 mg PO Q4H PRN PRN Reason: Anxiety Stop: 03/05/19 15:30 Hydroxyzine HCl (Vistaril) 50 mg PO HSZ PRN PRN Reason: Insomnia Stop: 03/05/19 15:30 Ibuprofen (Motrin) 600 mg PO Q6H PRN PRN Reason: Pain Stop: 03/06/19 13:29 Lactase (Lactaid) 3,000 units PO TID [facility] Stop: 03/05/19 20:59 Last Admin: 02/05/19 17:25 Dose: 3,000 units Documented by: Magnesium Hydroxide (Milk Of Magnesia) 30 ml PO DAILY PRN PRN Reason: Heartburn Stop: 03/05/19 15:30 Nicotine Polacrilex (Nicorette 2mg) 1 piece MT Q2H PRN PRN Reason: cravings Stop: 03/05/19 19:47 Last Admin: 02/05/19 21:02 Dose: 1 piece Documented by: Pantoprazole Sodium (Protonix) 40 mg PO DAILY [facility] Stop: 03/06/19 08:59 Last Admin: 02/06/19 06:32 Dose: 40 mg Documented by: Saccharomyces Boulardii (Florastor) 250 mg PO DAILY [facility] Stop: 03/06/19 08:59 Last Admin: 02/06/19 06:32 Dose: 250 mg Documented by: Sodium Chloride ([place] Nasal) 1 - 2 sprays NA PRN PRN PRN Reason: Nasal Dryness/Congestion Stop: 03/05/19 15:30 Post Discharge Appointments Primary Care Physician Name Of Family Doctor: Dr Arguello Therapist Name of Therapist: [facility] Technical Architect Name of Technical Architect: None CPT Code CPT Code 94916
[2019-02-06] MEDS: LACTASE 3000 UNIT TAB PO SCH ×3 (08:58→17:37)
[2019-02-06] MEDS: ESCITALOPRAM OXALATE 10 MG TAB PO SCH (08:59)
[2019-02-06] MEDS: NICOTINE POLACRILEX 2 MG GUM MT PRN ×4 (10:13→20:18)
[2019-02-07] MEDS: GABAPENTIN 300 MG CAP PO SCH ×3 (06:41→21:27)
[2019-02-07] MEDS: cloNIDine HCl 0.1 MG TAB PO SCH ×2 (06:41→17:31)
[2019-02-07] MEDS: PANTOprazole 40 MG TAB PO SCH (06:41)
[2019-02-07] MEDS: LACTASE 3000 UNIT TAB PO SCH ×3 (08:47→17:31)
[2019-02-07] MEDS: ESCITALOPRAM OXALATE 10 MG TAB PO SCH (08:47)
[2019-02-07] MEDS: SACCHAROMYCES BOULARDII 250 MG CAP PO SCH (08:47)
[2019-02-07] MEDS: NICOTINE POLACRILEX 2 MG GUM MT PRN ×4 (09:45→21:27)
--- NOTE | 2019-02-07 12:23 | Psychiatric Progress Note ---
Date of Service February 07, 2019 Impression / Recommendations Impression With additional information received from patient and during family meeting with , it is likely patient's symptoms are driven by obsessive type of anxiety, meaning there was no evidence to further support a history of bipolar presentation. Patient is tolerating day two of lexapro 5mg and will continued, will review her Genomind testing completed as outpatient with copy brought with her to this hospitalization to discuss it with her further. She reports modest benefit from neurontin but cognitive cloudiness, and most recent increase from 200mg tid to 300mg tid feeling more depressed. We will monitor she is hesitant for this provider to change and we agree to monitor closely both 02/06, and 02/07 and she may revisit change of neurontin as outpatient. She is at risk for regression and given reports of inability to care for self properly outside of the hospital setting premature discharge is likely to cause resurgence of inability to care for self. We discussed today the possibility of checking with Dr. arguello if the MRI order could be expanded to include focus on the temporal lobe in addition to usual parameters for brain MRI to rule out temporal lobe epilepsy. Will ask the primary team to call Dr. Langley's office on Friday to inquire. Although my suspicion is equivocal the symptoms are suspicious given patient is not anxious at the time they happen but they inspire her mood and anxiety and perceptual changes when they occur independent of medications she has been on We also discussed her relationship with her outpatient provider who is invested in treating mood instability where as patient is not certain that she indeed has bipolar disorder. We discussed ways to collaborate and ask to maintain her current discharge regimen and if the outpatient provider is willing to monitor closely with close follow-up prior to adding additional mood stabilizers. Patient asked about a second opinion and we discussed this but ways to attempt to continue to work in relationship with the provider who is already well known to her and the patient is well known to the provider. 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 Pt was admitted on 02/03/19 15:31 on a 201 voluntary commitment for worsening anxiety and difficulty caring for self. Information is gathered from patient and is considered to be reliable. Chief Complaint "A little better". Review of Systems Sleep Information Total Hours of Sleep: 7.5 Sleep Comments: pt on q-15 minute checks Meal Information Percent Meal Consumed - Breakfast: 100 Percent Meal Consumed - Lunch: 75 Percent Meal Consumed - Dinner: 50 Subjective Subjective Patient was seen & assessed and interval progress reviewed with Treatment Team She is attenting groups, had good visit with family yesterday. She contineus to be anxious. Slept last night. Met with patient. She is pleasant. She states she feels somewhat restless and tense today and is uncertain if this is medication or when provider discussed that she is have these sensations at home and that it may be related to anxiety. 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 The goal is to alleviate her need to solve and worry and focus on her "job." She states she is having episodes that are short lived has them a couple times a week and one just occurred today in group that prompted her to report it to this provider. She will be sitting and have an influx of memories from the past usually pleasant ones and will have an immediate anxious overwhelmed negative feeling despite not having been anxious in the moments before the thought. It will have an anxious quality she will feel somewhat confused for a few moments and then will continue to feel anxious for 1/2-hour to an hour. She denies any movements of her mouth or lip or your tongue no loss of bowel or bladder. She is not clear if she would be able to talk or speak during these episodes and is not certain if others are able to notice that she is having a concern. She states that he is different from her usual day-to-day worry or anxiety where she is contemplating things and then begins to feel more anxious and instead this seems to "come out of the blue" she denies a history of seizures. She is having an MRI on Friday of the brain and an open MRI in [place] ordered by her primary care Doctor Saundra from [place]. On review of symptoms she notes she is having mild problem with her vision today "not blurry, not difficulty seeing but rather like a fluctuation in her vibration. She has not had this before, she is feeling somewhat tense and restless, intact sleep, denies headache or stomach upset, denies musculoskeletal symptoms today denies psychiatric symptoms other than noted above Physical Exam Psychiatric Orientation: alert, oriented x 3 and cooperative Apperance: appropriately dressed, appropriately groomed and appeared stated age Eye Contact: good eye contact Motor Behavior: steady gait and station and no abnormal motor movements Speech: normal rate/rhythm/volume of speech Affect: + anxious affect (Mild) Mood: + anxious mood (Worries about the details of her care in the future) Thought Process: goal directed thought process, linear/logical thought process and clear/coherent thought process Thought Content: + preoccupation (with Physical sensations) and reality based without delusions Suicidal Thoughts: denies suicidal thoughts Homicidal Thoughts: denies homicidal thoughts Hallucinations: no auditory hallucinations and no visual hallucinations Cognition: recent memory grossly intact, remote memory grossly intact, attention grossly intact and language grossly intact Estimated Intelligence: consistent with education level Insight: + fair insight Judgement: + fair judgement Vital Signs (Past 24 Hours) Last Vital Signs Temp 36.7 C 02/07/19 06:47 Pulse 68 02/07/19 06:48 Resp 16 02/07/19 06:47 BP 113/72 02/07/19 06:48 Pulse Ox 98 02/03/19 16:58 Results & Data Current Inpatient Medications Current Inpatient Medications: Current Inpatient Medications Acetaminophen (Tylenol) 650 mg PO Q4H PRN PRN Reason: Headache or Minor Fever Stop: 03/05/19 15:30 Last Admin: 02/04/19 13:27 Dose: 650 mg Documented by: Al Hydrox/Mg Hydrox/Simethicone (Maalox) 30 ml PO Q4H PRN PRN Reason: GI Upset Stop: 03/05/19 15:30 Bismuth Subsalicylate (Kaopectate) 15 ml PO PRN PRN PRN Reason: Loose Stool Stop: 03/05/19 15:30 Chlorpromazine HCl (Thorazine) 10 mg PO BID PRN PRN Reason: Agitation Stop: 03/05/19 15:32 Clonidine HCl (Catapres) 0.05 mg PO BID17 [facility] Stop: 03/06/19 17:24 Last Admin: 02/07/19 06:41 Dose: 0.05 mg Documented by: Escitalopram Oxalate (Lexapro) 5 mg PO QAM [facility] Stop: 03/08/19 08:59 Last Admin: 02/07/19 08:47 Dose: 5 mg Documented by: Gabapentin (Neurontin) 300 mg PO TID [facility] Stop: 03/05/19 20:59 Last Admin: 02/07/19 06:41 Dose: 300 mg Documented by: Hydroxyzine HCl (Vistaril) 25 mg PO Q4H PRN PRN Reason: Anxiety Stop: 03/05/19 15:30 Hydroxyzine HCl (Vistaril) 50 mg PO HSZ PRN PRN Reason: Insomnia Stop: 03/05/19 15:30 Ibuprofen (Motrin) 600 mg PO Q6H PRN PRN Reason: Pain Stop: 03/06/19 13:29 Last Admin: 02/06/19 19:31 Dose: 600 mg Documented by: Lactase (Lactaid) 3,000 units PO TID [facility] Stop: 03/05/19 20:59 Last Admin: 02/07/19 08:47 Dose: 3,000 units Documented by: Magnesium Hydroxide (Milk Of Magnesia) 30 ml PO DAILY PRN PRN Reason: Heartburn Stop: 03/05/19 15:30 Nicotine Polacrilex (Nicorette 2mg) 1 piece MT Q2H PRN PRN Reason: cravings Stop: 03/05/19 19:47 Last Admin: 02/07/19 09:45 Dose: 1 piece Documented by: Pantoprazole Sodium (Protonix) 40 mg PO DAILY [facility] Stop: 03/06/19 08:59 Last Admin: 02/07/19 06:41 Dose: 40 mg Documented by: Saccharomyces Boulardii (Florastor) 250 mg PO DAILY [facility] Stop: 03/06/19 08:59 Last Admin: 02/07/19 08:47 Dose: 250 mg Documented by: Sodium Chloride ([place] Nasal) 1 - 2 sprays NA PRN PRN PRN Reason: Nasal Dryness/Congestion Stop: 03/05/19 15:30 Post Discharge Appointments Primary Care Physician Name Of Family Doctor: Dr Arguello Therapist Name of Therapist: [facility] Certified Bench Jeweler Technician Name of Certified Bench Jeweler Technician: None CPT Code CPT Code 92775
[2019-02-08] MEDS: cloNIDine HCl 0.1 MG TAB PO SCH (06:31)
[2019-02-08] MEDS: GABAPENTIN 300 MG CAP PO SCH (06:31)
[2019-02-08] MEDS: PANTOprazole 40 MG TAB PO SCH (06:31)
[2019-02-08] MEDS: SACCHAROMYCES BOULARDII 250 MG CAP PO SCH (08:40)
[2019-02-08] MEDS: LACTASE 3000 UNIT TAB PO SCH (08:40)
[2019-02-08] MEDS: NICOTINE POLACRILEX 2 MG GUM MT PRN (08:52)
[2019-02-08] MEDS: ESCITALOPRAM OXALATE 10 MG TAB PO SCH (09:41)
--- NOTE | 2019-02-08 09:46 | Discharge Summary ---
Date of Service February 08, 2019 History of Present Illness Ailyn Caicedo is a 38-year-old female admitted for inpatient psychiatric treatment due to reports of worsening anxiety, low mood, and difficulty caring for herself. Pt was recommended for admission by her psychiatric prescriber due to worsening condition. Pt reports anhedonia, limited motivation to complete tasks, decreased appetite, difficulty falling asleep, cover creaser awakening (3am), difficulty with memory and concentration, and hopelessness. Pt states she could not imagine doing anything to harm her family and denies suicidal ideation. Pt reports feeling most frustrated by many failed medication trials, finding herself wondering if her condition will ever improve. Pt states her anxiety were initially treated when she was in college due to "panic attacks constantly." She had been on buspirone and prn lorazepam "from 2004 to 2010, I felt like a zombie the whole time, but they weaned them off eventually and I felt fine." Pt reports resolution of symptoms until 2010 following the of her twin daughters. Pt admits to depressive symptoms at that time and was started on sertraline 50mg. With additional situational stress in the following years, the dose of sertraline was increased to 75mg. Pt reports what she had been told was "akathisia" with physical agitation, restlessness, inability to sleep, and a "crawling skin feeling." Sertraline was eventually discontinued and venlafaxine was initiated. Pt had similar, but less severe side effects to this transition. Following venlafaxine was a series of medication changes, including: trileptal, aripiprazole, clonazepam, lamotrigine, seroquel, risperidone, gabapentin, thorazine, citalopram, and paroxetine. Pt states nearly all of these medications caused what she calls "akathisia" and were therefore discontinued. Pt received genetic testing at one point, and has her results for this provider to review. Pt reports anxiety which is elevated from baseline, "stopping me from taking care of myself some days." She reports panic attacks which at their worst occ urred several times a day. During these, she admits to chest pain, tachycardia, dizziness, and "I feel like I'm gonna ." She states her anxiety can sometime be targeted toward specific things - most recently "fear of my father", reporting a feeling of being "unsafe" around him. She denies any fixed delusional beliefs surrounding her father and does not believe he has a desire to harm her in any way. Pt does admit to being on clonazepam TID in the past, which required inpatient detox when decision to taper was made in 10/2018. Pt denies SI/HI, A/V hallucinations, paranoia, OCD, and eating disorder history. 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 She denies any clear symptoms of a bipolar presentation aside from mild activation with/response to initiation of sertraline, which resulted in patient feeling her mood was "energetic" and she was "more talkative." Physical Exam Psychiatric Orientation: alert and cooperative Apperance: appropriately dressed and appropriately groomed Eye Contact: good eye contact Motor Behavior: steady gait and station and no abnormal motor movements Speech: normal rate/rhythm/volume of speech Affect: + anxious affect Mood: + anxious mood Thought Process: goal directed thought process Thought Content: reality based without delusions Suicidal Thoughts: denies suicidal thoughts Homicidal Thoughts: denies homicidal thoughts Hallucinations: no auditory hallucinations and no visual hallucinations Cognition: recent memory grossly intact, remote memory grossly intact, attention grossly intact and language grossly intact Estimated Intelligence: average estimated intelligence Insight: + fair insight Judgement: + fair judgement Vital Signs (Past 24 Hours) Last Vital Signs Temp 36.8 C 02/08/19 06:44 Pulse 89 02/08/19 06:45 Resp 16 02/08/19 06:44 BP 129/88 02/08/19 06:45 Pulse Ox 98 02/03/19 16:58 Principal Diagnosis Mood disorder unspecified Psychiatric Data The patient has been on our unit for 5 days. She was admitted voluntarily with severe depression and anxiety. She has had multiple trials of medications and there was concern for an underlying bipolarity although she did not meet full criteria for that. Lexapro was started at 2.5 mg increasing to 5 mg daily. She said that she felt agitated and anxious on it. She describes that this is a similar reaction she had to an antidepressant in the past although has had a long course of Zoloft that she tolerated well in the past. For complete admission information I refer you to the attached history and physical. The patient admitted during her stay the being on antidepressants helps to make her thoughts clear although has an anxious reaction to them. Her outpatient provider is considered a bipolar diagnosis and she has actually been tried on at least 3 low level mood stabilizers but felt that they only made her more depressed. She had questions about try cyclic antidepressants and whether or not they might be effective without similar side effects. She also asked about lithium which is something her outpatient provider had brought up. The patient is scheduled for an outpatient MRI of the brain per her PCP, Dr. arguello. We would recommend that this be with and without contrast. Overall during her stay, the patient's focus was on anxiety and possible side effects to medications. She was hesitant to continue to take Lexapro due to her concerns that feeling jittery and anxious was a side effect to Lexapro. She has confidence in her outpatient prescriber, Mary FRANCO and will continue to discuss this with her and hopes to be able to call for an appointment on the day of discharge. Nursing reports that she was participating in groups and individual although frequently expressed that she was bored. Consideration was given to a diagnosis of a personality disorder which will need to be followed longitudinally by her outpatient provider. Risk factors were mitigated through the use of group and individual counseling, medications, safety planning, aftercare planning, exploration of healthy coping strategies, education about diagnoses and meds. Day of Discharge Assessment Today the patient is requesting discharge. She feels improved over admission and feels ready to go home. She continues to be concerned about medications and has refused to take her Lexapro this morning. We have discussed treatment options that she agrees to continue to discuss with Tere including options for stronger mood stabilizer such as lithium or possibly try cyclic antidepressants if she is not suicidal. She reports feeling jittery and anxious today although there is no tremor to outstretched hands. She denies suicidal ideation. Today she is casually and appropriately dressed and groomed. Gait and station are within normal limits. Eye contact is good. Affect is anxious. Speech is of normal rate volume and tone. Thoughts are organized, goal- directed, and without evidence of thought disorder. Recent and remote memory are intact per conversation. Intelligence is estimated to be average. Insight and judgment are improved over admission. Transition of Care Transition Of Care Record: was reviewed with the patient Advance Directives Advance Directives Information Provided: Yes Advance Directives: No Mental Health Advance Directive: No Living Will: No Power of Sanitation Laborer: No Advance Directives Reason:: Declines as Mental Health Visit. 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4 Immature Gran % (Auto) 0.2 Neut % (Auto) 68.9 Lymph % (Auto) 22.6 [place] % (Auto) 4.4 Eos % (Auto) 3.4 Baso % (Auto) 0.5 Immature Gran # (Auto) 0.02 Neut # (Auto) 6.38 Lymph # (Auto) 2.10 [place] # (Auto) 0.41 Eos # (Auto) 0.32 Baso # (Auto) 0.05 Sodium Potassium Chloride Carbon Dioxide Anion Gap BUN Creatinine Est Cr Clr Drug Dosing Est GFR ( Amer) Est GFR (Non-Af Amer) BUN/Creatinine Ratio Glucose Calcium Total Bilirubin AST ALT Alkaline Phosphatase Total Protein Albumin Globulin Albumin/Globulin Ratio TSH HCG, Qual Urine Color Yellow Urine Appearance Clear Urine pH 6.5 Ur Specific [place] 1.011 Urine Protein Negative Urine Glucose (UA) Negative Urine Ketones Trace H Urine Blood Negative Urine Nitrite Negative Urine Bilirubin Negative Urine Urobilinogen Negative Ur Leukocyte Esterase Negative Urine Opiates Screen Neg Ur Methadone, Qual Neg Urine Barbiturates Neg Ur Phencyclidine (PCP) Neg U Amphetamin/Meth Scrn Neg MDMA (Ecstasy) Screen Neg U Benzodiazepines Scrn Neg Ur Cocaine Metabolite Neg U Marijuana (THC) Screen Neg Ethyl Alcohol mg/dL 02/03/19 02/03/19 02/03/19 12:35 12:35 12:35 WBC RBC Hgb Hct MCV MCH MCHC RDW Std Deviation RDW Coeff of Anders Plt Count MPV Immature Gran % (Auto) Neut % (Auto) Lymph % (Auto) [place] % (Auto) Eos % (Auto) Baso % (Auto) Immature Gran # (Auto) Neut # (Auto) Lymph # (Auto) [place] # (Auto) Eos # (Auto) Baso # (Auto) Sodium 137 Potassium 3.5 Chloride 106 Carbon Dioxide 25 Anion Gap 6.0 BUN 12 Creatinine 0.66 Est Cr Clr Drug Dosing 111.8 Est GFR ( Amer) 130.8 Est GFR (Non-Af Amer) 112.9 BUN/Creatinine Ratio 18.4 Glucose 127 H Calcium 8.6 Total Bilirubin 0.5 AST 10 L ALT 20 Alkaline Phosphatase 63 Total Protein 7.6 Albumin 4.3 Globulin 3.3 Albumin/Globulin Ratio 1.3 TSH 1.300 HCG, Qual Negative Urine Color Urine Appearance Urine pH Ur Specific [place] Urine Protein Urine Glucose (UA) Urine Ketones Urine Blood Urine Nitrite Urine Bilirubin Urine Urobilinogen Ur Leukocyte Esterase Urine Opiates Screen Ur Methadone, Qual Urine Barbiturates Ur Phencyclidine (PCP) U Amphetamin/Meth Scrn MDMA (Ecstasy) Screen U Benzodiazepines Scrn Ur Cocaine Metabolite U Marijuana (THC) Screen Ethyl Alcohol mg/dL < 3.0 Hospital Course (1) Depression: 02/04 - Admitted to a locked inpatient behavioral health unit, on q15 minute safety checks - Agreeable to initiation of escitalopram at 2.5mg, with plan to increase to 5mg dose tomorrow morning - Request and review records from outpatient providers - Encourage participation in group and recreational therapies - Gather collateral information from outpatient providers - Suggest family meeting to involve outpatient supports in safety planning - Arrange appropriate aftercare 02/05 - Will provide additional 2.5mg of escitalopram at lunch today, then increase to 5mg qAM starting tomorrow - Family meeting with this morning, provided helpful collateral information - Continue to encourage participation in group and recreational therapies 02/06 - continue as above, lexapro 5mg, and monitor neurontin closely as could impact mood and cognition (2) Anxiety: 02/04 - initiate escitalopram 2.5mg with titration as tolerated - hydroxyzine available as needed for acute anxiety 02/05 - medication adjustments as above - continue to gather history, as diagnosis may be more consistent with a possible obsessive compulsive disorder given new information provided - offer support with regard to physical concerns and assist with healthy coping strategies to manage anxiety 02/06 - as above, monitor neurontin as may help but also bring side effects Post Discharge Appointments Primary Care Physician Name Of Family Doctor: Dr Arguello Therapist Name of Therapist: Ree @ [facility] Configuration Consultant Name of Configuration Consultant: None Smoking Cessation Counseling Tobacco Cessation Medication Prescribed at Discharge: Offered & Pt Refused (has nicorette gum at home) Discharge Plan Discharge Items Patient Disposition: Home - Self-Care Reason For Visit: DEPRESSION Discharge Diagnosis: Mood disorder NOS Discharge Goals: Decrease discomfort, Improve disease control and Improve function Activity: Resume your previous activity Non-emergency contact: Psychiatrist and Therapist Follow-up/Referrals: Sarah Arguello DO [Primary Care Provider] - Diet: Regular Addtl Provider Instructions: SPECIAL CARE INSTRUCTIONS: 1. Follow through with your scheduled aftercare appointments. If unable to keep an appointment, please call to reschedule. 2. Take your medication only as prescribed. Medication should not be changed or stopped without the approval of your doctor. In the event of worsening symptoms or concerns about side effects, contact your doctor immediately. 3. Utilize new healthy coping skills, anger management skills, and stress management skills learned during your hospitalization. Journal feelings and process them with a support person. Identify stressors or situations that may result in relapse, deterioration or inappropriate behaviors and develop a plan to deal with those issues. 4. If your coping skills are ineffective and you are in crisis, contact your outpatient providers for direction. If unable to reach your providers, please call the CAN HELP LINE AT or go to the closest Emergency Room. 5. Avoid alcohol and un-prescribed drugs. 6. You have been provided with the Mental Health Advance Directives Pamphlet for your review. AFTERCARE APPOINTMENTS: * Please call your insurance company prior to your scheduled appointment to confirm your aftercare providers are covered. Take your insurance information to your appointments. WHO TO CALL AND WHEN: Medical Emergencies: For questions or emergencies related to your hospital stay, please contact the Inpatient Behavioral Health Unit at [phone]. A sanitary plumber is on-call 16/06 for the Behavioral Health Unit for emergencies At any time you feel your situation is an emergency, you may also call 911 immediately. Your Doctors Instructions noted above were prepared by provider VERNA Justin. Prescriptions: New escitalopram oxalate 10 mg Tablet 5 mg PO QAM Qty: 30 RF: 0 Continued gabapentin 300 mg Capsule 300 mg PO TID RF: 0 chlorpromazine 10 mg tablet 10 mg PO BID PRN (Reason: Agitation) RF: 0 clonidine HCl 0.1 mg Tablet 0.05 mg PO BID RF: 0 Culturelle 10 billion cell Capsule 1 cap PO HS RF: 0 Prilosec OTC 20 mg Tablet,Delayed Release (Dr/Ec) 20 mg PO DAILY RF: 0 Florastor 250 mg Capsule 250 mg PO BID RF: 0 Stand-Alone Forms: [facility] Discharge Orders: Discharge Order (Routine); Ordered 02/08/19 Ordered By: Luna Ferris Admission Data Admit Date/Time: 02/03/19 15:31 Attending Provider: Marilu Ferro Admit Provider: Marilu Ferro Primary Care Provider: Sarah Arguello Service: Psychiatry Other Interventions: PSY Interdisciplinary Discharge Planning Last Done: 02/08/19 09:25 Pending Studies at Discharge: No
== END 2019-02-08 11:21 | disposition home or self-care (01) | DRG 885 ==
LOC: ED 11:34 → 3S 15:31